=== PATIENT | male | born 1955 | race African-American/Black ===

== ENCOUNTER 2025-05-15 15:59 | Emergency (ER) | payer MEDICAID ==
[~2025-05-15] VITALS: Ht 185.4 cm; Wt 105.0 kg
[~2025-05-15 15:59] MED LIST: APIX5TAB MT; CARV3.1242 MT; IRBE75TA16 PO
[2025-05-15 16:06] VITALS: O2SAT 98
[2025-05-15] MEDS ORDERED: ACET-2708 MT (16:55)
[2025-05-15] MEDS ORDERED: LIDO-53 TP (16:56)
[2025-05-15] MEDS: LIDOCAINE 5% PATCH TOP SCH (17:27)
[2025-05-15] MEDS: KETOROLAC 30MG/ML VIAL IM ONE (17:27)
[2025-05-15 17:34] VITALS: BP 158/80; PULSE 72; RESP 17; TEMP 36.7; O2SAT 98
[2025-05-15] MEDS: ACETAMINOPHEN 325MG TABLET PO ONE (17:40)
[2025-05-16] MEDS ORDERED: CYCL10TA21 MT (21:34)
[2025-05-16] MEDS ORDERED: ACET-2708 MT (21:34)
== END 2025-05-15 17:35 | disposition home or self-care (01) ==
LOC: ER 15:59
DX: M54.10 Radiculopathy, site unspecified (principal); I11.0 Hypertensive heart disease with heart failure; I50.9 Heart failure, unspecified; F12.90 Cannabis use, unspecified, uncomplicated; Z79.899 Other long term (current) drug therapy
CPT/HCPCS: 99283; 72100; 96372; J1885

== ENCOUNTER 2025-05-16 17:51 | Emergency (ER) | payer MEDICAID ==
[~2025-05-16] VITALS: Ht 185.4 cm; Wt 152.0 kg
[~2025-05-16 17:51] MED LIST changes: +ACET-2708 MT; +LIDO-53 TP
[2025-05-16 18:04] VITALS: O2SAT 100
[2025-05-16] MEDS ORDERED: CYCL10TA21 MT (21:34)
[2025-05-16] MEDS ORDERED: ACET-2708 MT (21:34)
[2025-05-16] MEDS: LIDOCAINE 5% PATCH TOP SCH (22:03)
[2025-05-16] MEDS: KETOROLAC 30MG/ML VIAL IM ONE (22:04)
[2025-05-16] MEDS: DEXAMETHASONE 10 MG/ML VIAL IM ONE (22:04)
[2025-05-16 22:10] VITALS: BP 168/109; PULSE 89; RESP 18; TEMP 37.1; O2SAT 98
== END 2025-05-16 22:15 | disposition home or self-care (01) ==
LOC: ER 17:51
DX: M54.10 Radiculopathy, site unspecified (principal); I11.0 Hypertensive heart disease with heart failure; I48.91 Unspecified atrial fibrillation; I50.9 Heart failure, unspecified; Z79.01 Long term (current) use of anticoagulants; Z79.899 Other long term (current) drug therapy
CPT/HCPCS: 99284; 96372; J1885; J1100